=== PATIENT | female | born 1970 | race Caucasian/White ===

== ENCOUNTER 2025-03-08 07:02 | Inpatient (IN) ==
[2025-03-08] MEDS: ACETAMINOPHEN 1,000 MG/100 ML BAG IV ONE (07:33)
[2025-03-08] MEDS: 0.9 % SODIUM CHLORIDE 1,000 ML IV ONE ×2 (07:33→09:34)
[2025-03-08 07:58] LABS: Basophils # (Auto) 0.03 K/mcL (0.00-0.30); Basophils % (Auto) 0.4 % (0.0-2.0); Eosinophils # (Auto) 0.43 K/mcL (0.00-0.70); Hematocrit 28.9 % (34.1-44.9); Hemoglobin 8.6 g/dL (11.2-15.7); Lymphocytes # (Auto) 1.05 K/mcL (1.50-4.80); Lymphocytes % (Auto) 14.7 % (15.5-49.0); Mean Cell Volume 98.6 fL (80.0-100.0); Mean Corpuscular HGB Conc 29.8 g/dL (31.0-36.0); Mean Platelet Volume 10.1 fL (8.8-12.5); Monocytes # (Auto) 0.44 K/mcL (0.10-0.90); Monocytes % (Auto) 6.2 % (1.0-12.0); Neutrophils % (Auto) 70.9 % (38.0-78.0); Platelet Count 119 K/mcL (140-440); RBC 2.93 M/mcL (3.59-5.38); Red Cell Distribution Width 13.3 % (11.5-14.5); WBC 7.2 K/mcL (4.5-11.0)
[2025-03-08 08:27] LABS: ALT/SGPT 58 U/L (<40); AST/SGOT 33 U/L (<32); Albumin/Globulin Ratio 1.4 (1.0-2.3); Alkaline Phosphatase 81 U/L (39-117); Bilirubin,Total 0.2 mg/dL (0.1-1.0); Blood Urea Nitrogen 28 mg/dL (6-20); Calcium 9.2 mg/dL (8.6-10.4); Carbon Dioxide 21 mmol/L (22-30); Chloride 106 mmol/L (96-108); Globulin 2.8 gm/dL (2.2-3.7); Glomerular Filtration Rate 31; Glucose 127 mg/dL (70-105); Potassium 4.1 mmol/L (3.3-5.1); Sodium 139 mmol/L (133-145)
[2025-03-08 11:35] LABS: Blood Urea Nitrogen 28 mg/dL (6-20); Calcium 9.5 mg/dL (8.6-10.4); Carbon Dioxide 17 mmol/L (22-30); Chloride 108 mmol/L (96-108); Glomerular Filtration Rate 31; Glucose 130 mg/dL (70-105); Potassium 4.2 mmol/L (3.3-5.1); Sodium 143 mmol/L (133-145)
[2025-03-08] MEDS ORDERED: ACETAMINOPHEN 325 MG TABLET PO PRN (14:58)
[2025-03-08] MEDS ORDERED: DEXTROSE 50% 50 ML VIAL IV PRN (14:58)
[2025-03-08] MEDS ORDERED: DEXTROSE 31 GM ORAL.SUSP PO PRN (14:58)
[2025-03-08] MEDS: DIAZEPAM 5 MG TABLET PO ONE (15:01)
[2025-03-08] MEDS: DIAZEPAM 2 MG TABLET PO ONE (15:01)
[2025-03-08 15:05] LABS: Appearance,Urine Cloudy (Clear); Bacteria,Urine Many /hpf (0); Bilirubin,Urine Negative (Negative); Color,Urine Yellow; Glucose,Urine (UA) Negative (Negative); Ketones,Urine Negative (Negative); Leukocyte Esterase,Urine Negative /uL (Negative); Nitrate,Urine Negative (Negative); Protein,Urine Negative (Negative); Specific Gravity,Urine 1.015 (1.000-1.035); Urine Blood Negative ery/mcL (Negative); Urine RBC 2 /hpf (0-3); Urine Squamous Epithelial Cell 1 /hpf (0-4); Urine WBC 4 /hpf (0-4); Urobilinogen,Urine Normal
[2025-03-08] MEDS: 0.9 % SODIUM CHLORIDE 1,000 ML IV SCH ×2 (15:23→17:51)
[2025-03-08 16:03] LABS: C-Reactive Protein 0.58 mg/dL (0.03-0.80)
[2025-03-08] MEDS ORDERED: HYDROmorphone 0.5 MG/0.5 ML SYRINGE IV PRN (16:51)
[2025-03-08] MEDS: INSULIN LISPRO 1 UNIT/0.01 ML UNIT SQ SCH (17:01)
[2025-03-08] MEDS: amLODIPine 10 MG TABLET PO SCH (17:09)
[2025-03-08] MEDS: methylPREDNISolone SOD SUCC 125 MG/2 ML VIAL IV ONE (17:09)
[2025-03-08] MEDS: ACETAMINOPHEN 1,000 MG/100 ML BAG IV SCH (17:09)
[2025-03-08] MEDS: AMITRIPTYLINE 25 MG TABLET PO SCH (20:26)
[2025-03-08] MEDS: TOPIRAMATE 25 MG TABLET PO SCH (20:27)
[2025-03-08] MEDS: HYDROCODONE/APAP 7.5/325MG TABLET PO PRN (20:27)
[2025-03-08] MEDS: hydrALAZINE 25 MG TABLET PO SCH (20:27)
[2025-03-08] MEDS: GABAPENTIN 400 MG CAPSULE PO SCH (20:27)
[2025-03-08] MEDS: PRAMIPEXOLE 0.25 MG TABLET PO SCH (20:27)
[2025-03-08] MEDS: HEPARIN 5,000 UNIT/ML VIAL SQ SCH (20:29)
[2025-03-08] MEDS: DOCUSATE SODIUM 100 MG CAPSULE PO SCH (20:30)
[2025-03-08] MEDS: SENNOSIDES 1 TABLET PO SCH (20:30)
[2025-03-08] MEDS: 0.9 % SODIUM CHLORIDE 10 ML SYRINGE IV SCH (20:30)
[2025-03-08] MEDS ORDERED: TOPIRAMATE 25 MG TABLET PO SCH (21:00)
[2025-03-09] MEDS: traMADol 50 MG TABLET PO PRN (03:49)
[2025-03-09 06:59] LABS: Basophils # (Auto) 0.01 K/mcL (0.00-0.30); Basophils % (Auto) 0.2 % (0.0-2.0); Eosinophils # (Auto) 0.02 K/mcL (0.00-0.70); Eosinophils % (Auto) 0.3 % (0.0-7.0); Hematocrit 27.9 % (34.1-44.9); Hemoglobin 8.5 g/dL (11.2-15.7); Lymphocytes # (Auto) 0.44 K/mcL (1.50-4.80); Lymphocytes % (Auto) 7.3 % (15.5-49.0); Mean Cell Volume 96.2 fL (80.0-100.0); Mean Corpuscular HGB Conc 30.5 g/dL (31.0-36.0); Monocytes # (Auto) 0.09 K/mcL (0.10-0.90); Monocytes % (Auto) 1.5 % (1.0-12.0); Platelet Count 110 K/mcL (140-440); Red Cell Distribution Width 12.8 % (11.5-14.5); WBC 6.1 K/mcL (4.5-11.0)
[2025-03-09 07:11] LABS: ALT/SGPT 51 U/L (<40); AST/SGOT 26 U/L (<32); Albumin 3.9 gm/dL (3.2-5.2); Albumin/Globulin Ratio 1.5 (1.0-2.3); Alkaline Phosphatase 82 U/L (39-117); Bilirubin,Direct < 0.2 mg/dL (0-0.3); Bilirubin,Total < 0.2 mg/dL (0.1-1.0); Blood Urea Nitrogen 26 mg/dL (6-20); Calcium 9.4 mg/dL (8.6-10.4); Carbon Dioxide 21 mmol/L (22-30); Chloride 109 mmol/L (96-108); Globulin 2.6 gm/dL (2.2-3.7); Glomerular Filtration Rate 34; Glucose 187 mg/dL (70-105); Lactate Dehydrogenase 184 U/L (135-225); Phosphorous 3.6 mg/dL (2.5-4.5); Potassium 4.7 mmol/L (3.3-5.1); Sodium 142 mmol/L (133-145); Triglycerides 106 mg/dL (<150); Uric Acid 6.8 mg/dL (2.5-8.0)
[2025-03-09] MEDS: methylPREDNISolone SOD SUCC 125 MG/2 ML VIAL IV SCH (08:29)
[2025-03-09] MEDS: LEFLUNOMIDE 20 MG TABLET PO SCH (08:30)
[2025-03-09] MEDS: HYDROXYCHLOROQUINE 200 MG TABLET PO SCH (08:30)
[2025-03-09] MEDS: ATORVASTATIN 40 MG TABLET PO SCH (08:30)
[2025-03-09] MEDS: ESCITALOPRAM 20 MG TABLET PO SCH (08:30)
[2025-03-09] MEDS ORDERED: HYDROXYCHLOROQUINE 200 MG TABLET PO SCH (09:00)
[2025-03-09] MEDS: MAGNESIUM SULFATE 2 GM/50 ML BAG IV ONE (09:51)
[2025-03-09] MEDS: cefTRIAXone 1 GM VIAL IV SCH (11:02)
[2025-03-09 14:28] LABS: Lactate Dehydrogenase 178 U/L (135-225)
[2025-03-09 14:44] LABS: Hematocrit 27.5 % (34.1-44.9); Hemoglobin 8.3 g/dL (11.2-15.7); Mean Cell Volume 97.5 fL (80.0-100.0); Mean Corpuscular HGB Conc 30.2 g/dL (31.0-36.0); Mean Platelet Volume 10.2 fL (8.8-12.5); Platelet Count 110 K/mcL (140-440); RBC 2.82 M/mcL (3.59-5.38); WBC 7.6 K/mcL (4.5-11.0)
[2025-03-09 14:54] LABS: Iron 74 ug/dL (37-145); TIBC Calculation 219 ug/dl (228-428); Transferrin % Saturation 34 % (15-50)
[2025-03-09 14:56] LABS: Retic Absolute 0.07 M/mcL (0.02-0.10)
[2025-03-09 16:26] LABS: Band Neutrophils % 6 % (0-10); Hypochromasia 1+ (None Seen); Lymphocytes % 7 % (15-49); Metamyelocytes % 2 %; Monocytes % (Manual) 2 % (1-12); Myelocytes % 2 %; Platelet Estimate DECREASED (Normal); RBC Morphology ABNORMAL (Normal); Segmented Neutrophils % 81 % (38-78); Tear Drop Cells 1+ (None Seen)
[2025-03-09] MEDS: INSULIN LISPRO 1 UNIT/0.01 ML UNIT SQ SCH (17:41)
[2025-03-09] MEDS: ONDANSETRON 4 MG/2 ML VIAL IV PRN (20:23)
[2025-03-09] MEDS ORDERED: AMITRIPTYLINE 25 MG TABLET PO SCH (21:00)
[2025-03-09] MEDS: MELATONIN 3 MG TABLET PO SCH (22:06)
[2025-03-10 06:47] LABS: Basophils # (Auto) 0.01 K/mcL (0.00-0.30); Basophils % (Auto) 0.1 % (0.0-2.0); Eosinophils # (Auto) 0.01 K/mcL (0.00-0.70); Eosinophils % (Auto) 0.1 % (0.0-7.0); Hemoglobin 8.6 g/dL (11.2-15.7); Lymphocytes # (Auto) 0.51 K/mcL (1.50-4.80); Lymphocytes % (Auto) 5.8 % (15.5-49.0); Mean Cell Volume 95.9 fL (80.0-100.0); Mean Corpuscular HGB Conc 30.7 g/dL (31.0-36.0); Mean Platelet Volume 10.1 fL (8.8-12.5); Monocytes # (Auto) 0.15 K/mcL (0.10-0.90); Monocytes % (Auto) 1.7 % (1.0-12.0); Neutrophils % (Auto) 90.1 % (38.0-78.0); Platelet Count 115 K/mcL (140-440); RBC 2.92 M/mcL (3.59-5.38); Red Cell Distribution Width 12.9 % (11.5-14.5); WBC 8.8 K/mcL (4.5-11.0)
[2025-03-10] MEDS: predniSONE 20 MG TABLET PO SCH (07:21)
[2025-03-10 07:37] LABS: ALT/SGPT 42 U/L (<40); AST/SGOT 17 U/L (<32); Albumin 3.7 gm/dL (3.2-5.2); Albumin/Globulin Ratio 1.2 (1.0-2.3); Alkaline Phosphatase 83 U/L (39-117); Bilirubin,Direct < 0.2 mg/dL (0-0.3); Bilirubin,Total < 0.2 mg/dL (0.1-1.0); Blood Urea Nitrogen 30 mg/dL (6-20); Calcium 9.4 mg/dL (8.6-10.4); Carbon Dioxide 20 mmol/L (22-30); Chloride 108 mmol/L (96-108); Globulin 3.2 gm/dL (2.2-3.7); Glomerular Filtration Rate 34; Glucose 222 mg/dL (70-105); Lactate Dehydrogenase 193 U/L (135-225); Phosphorous 3.5 mg/dL (2.5-4.5); Potassium 4.8 mmol/L (3.3-5.1); Sodium 140 mmol/L (133-145); Triglycerides 115 mg/dL (<150); Uric Acid 6.5 mg/dL (2.5-8.0)
[2025-03-10] MEDS: ASPIRIN 81 MG TAB.CHEW PO SCH (08:23)
[2025-03-10] MEDS: cefTRIAXone 1 GM VIAL IV SCH (10:39)
[2025-03-10] MEDS: cefTRIAXone 2 GM in DEXTROSE 5% IN WATER 50 ML IV SCH (11:28)
[2025-03-10] MEDS: COLCHICINE 0.6 MG CAPSULE PO SCH (12:48)
[2025-03-10 19:09] LABS: DNA Antibody DS <1 IU/mL (0-9)
[2025-03-10] MEDS: AMITRIPTYLINE 25 MG TABLET PO SCH (20:35)
[2025-03-11 06:00] LABS: Basophils # (Auto) 0.02 K/mcL (0.00-0.30); Basophils % (Auto) 0.2 % (0.0-2.0); Eosinophils # (Auto) 0.06 K/mcL (0.00-0.70); Eosinophils % (Auto) 0.7 % (0.0-7.0); Hematocrit 27.6 % (34.1-44.9); Hemoglobin 8.5 g/dL (11.2-15.7); Lymphocytes # (Auto) 1.56 K/mcL (1.50-4.80); Lymphocytes % (Auto) 19.5 % (15.5-49.0); Mean Cell Volume 96.2 fL (80.0-100.0); Mean Corpuscular HGB Conc 30.8 g/dL (31.0-36.0); Monocytes # (Auto) 0.52 K/mcL (0.10-0.90); Monocytes % (Auto) 6.5 % (1.0-12.0); Neutrophils % (Auto) 69.2 % (38.0-78.0); Platelet Count 129 K/mcL (140-440); RBC 2.87 M/mcL (3.59-5.38)
[2025-03-11 06:14] LABS: ALT/SGPT 33 U/L (<40); AST/SGOT 12 U/L (<32); Albumin 3.6 gm/dL (3.2-5.2); Albumin/Globulin Ratio 1.3 (1.0-2.3); Alkaline Phosphatase 77 U/L (39-117); Bilirubin,Direct < 0.2 mg/dL (0-0.3); Bilirubin,Total < 0.2 mg/dL (0.1-1.0); Blood Urea Nitrogen 33 mg/dL (6-20); Calcium 9.3 mg/dL (8.6-10.4); Carbon Dioxide 22 mmol/L (22-30); Chloride 108 mmol/L (96-108); Globulin 2.7 gm/dL (2.2-3.7); Glomerular Filtration Rate 31; Glucose 172 mg/dL (70-105); Lactate Dehydrogenase 174 U/L (135-225); Phosphorous 3.2 mg/dL (2.5-4.5); Potassium 4.2 mmol/L (3.3-5.1); Sodium 141 mmol/L (133-145); Triglycerides 168 mg/dL (<150); Uric Acid 7.2 mg/dL (2.5-8.0)
[2025-03-11] MEDS: LIDOCAINE 4% TOP PATCH TOPICAL PRN (10:27)
[2025-03-11] MEDS: MEROPENEM 1 GM in 0.9 % SODIUM CHLORIDE 50 ML IV SCH ×2 (17:21→17:47)
[2025-03-11] MEDS: MELATONIN 3 MG TABLET PO SCH (20:25)
[2025-03-12 06:25] LABS: Blood Urea Nitrogen 35 mg/dL (6-20); Calcium 9.4 mg/dL (8.6-10.4); Carbon Dioxide 18 mmol/L (22-30); Chloride 108 mmol/L (96-108); Glomerular Filtration Rate 31; Glucose 127 mg/dL (70-105); Potassium 4.3 mmol/L (3.3-5.1); Sodium 139 mmol/L (133-145)
[2025-03-12] MEDS: SODIUM BICARBONATE 650 MG TABLET PO SCH (09:26)
[2025-03-12] MEDS: ERTAPENEM 1 GM in 0.9 % SODIUM CHLORIDE 50 ML IV SCH (13:56)
[2025-03-12 16:46] LABS: Sars-cov2 IGG Nucleocapsid, QL POSITIVE
[2025-03-13] MEDS: predniSONE 5 MG TABLET PO SCH (10:33)
[2025-03-13 10:56] LABS: Myeloperoxidase ABS <1.0 AI (<1.0); Proteinase-3-AB <1.0 AI (<1.0)
[2025-03-14 03:04] VITALS: O2SAT 98
[2025-03-14] MEDS ORDERED: SODIUM CHLORIDE IRRIG SOLUTION 250 ML BOTTLE IRR ONE (08:28)
[2025-03-14] MEDS ORDERED: HEPARIN 10 UNITS/ML 5ML FLUSH IV ONE (08:28)
[2025-03-14] MEDS ORDERED: LIDOCAINE 1% 10 ML VIAL SQ ONE (08:28)
[2025-03-14] MEDS ORDERED: LOPERAMIDE 2 MG CAPSULE PO PRN (10:04)
[2025-03-14] MEDS: LOPERAMIDE 2 MG CAPSULE PO SCH ×2 (11:03→12:58)
[2025-03-14 11:59] VITALS: TEMP 96.9
[2025-03-14] MEDS ORDERED: DILTIAZEM 30 MG TABLET PO SCH (14:00)
== END 2025-03-14 13:43 | disposition home or self-care (01) | DRG 683 ==
LOC: ED 07:02 → MEDSUR 15:03
PROVIDERS: ADMIT Internal Medicine; ATTEND Internal Medicine